=== PATIENT | female | born 1955 | race Caucasian/White ===

== ENCOUNTER → 2018-05-27 | Outpatient (CLI) | payer OTHER ==
--- NOTE | 2018-05-27 15:26 | CARD ---
MR#: [id number] Date of Study: 05/27/2018 Ordering Physician: ANITA CRISTOBAL, Referring Physician: ANITA CRISTOBAL, Tech: Dyan Kunz APPROVED REPORT EXAM: Two-dimensional and M-mode echocardiogram with Doppler and color Doppler. Other Information Quality : AverageHR: 86bpm Rhythm : NSR INDICATION Chest Pain RISK FACTORS Hyperlipidemia Smoking 2D DIMENSIONS RVDd2.8 (2.9-3.5cm)Left Atrium(2D)2.9 (1.6-4.0cm) IVSd1.0 (0.7-1.1cm)Aortic Root(2D)2.9 (2.0-3.7cm) LVDd4.2 (3.9-5.9cm)LVOT Diameter2.0 (1.8-2.4cm) PWd0.9 (0.7-1.1cm)LVDs2.3 (2.5-4.0cm) FS (%) 45.4 %SV61.3 ml Aortic Valve AoV Peak Kenny.105.9cm/sAoV VTI20.7cm AO Peak GR.4.5mmHgLVOT Peak Kenny.71.4cm/s LVOT VTI 15.54cmAO Mean GR.2mmHg DAT (VMAX)1.45ph2SUQ (VTI)2.45cm2 Mitral Valve MV E Cbvjngwl56.0cm/sMV DECEL [id number] MV A Qzhummof36.7cm/sMV [id number] E/A Ratio0.7MVA (PHT)3.21cm2 TDI E/Lateral E'6.4E/Medial E'6.8 Pulmonary Valve PV Peak Gkqzxcgf40.0cm/sPV Peak Grad.2mmHg Tricuspid Valve TR P. Llxidoud114hp/sRAP QDRDFOZH5teOw TR Peak Gr.80zxNlLPFM25nvYc Pulmonary Vein S1 Pihgazks21.8cm/sD2 Lpdntoad01.0cm/s PVa [id number] LEFT VENTRICLE The left ventricle is normal size. There is normal left ventricular wall thickness. The left ventricu lar systolic function is normal and the ejection fraction is within normal range. The Ejection Fracti on is 55-60%. There is normal LV segmental wall motion. Transmitral Doppler flow pattern is Grade I-a bnormal relaxation pattern. RIGHT VENTRICLE The right ventricle is normal size. There is normal right ventricular wall thickness. The right ventr icular systolic function is normal. ATRIA The left atrium size is normal. The right atrium size is normal. The interatrial septum is intact wit h no evidence for an atrial septal defect or patent foramen ovale as noted on 2-D or Doppler imaging. AORTIC VALVE The aortic valve is normal in structure and function. Doppler and Color Flow revealed no significant aortic regurgitation. There is no significant aortic valvular stenosis. MITRAL VALVE The mitral valve is normal in structure and function. There is no evidence of mitral valve prolapse. There is no mitral valve stenosis. Doppler and Color Flow revealed no mitral valve regurgitation note d. TRICUSPID VALVE The tricuspid valve is normal in structure and function. Doppler and Color Flow revealed trace tricus pid regurgitation. There is no tricuspid valve stenosis. PULMONIC VALVE The pulmonic valve is not well visualized. Doppler and Color Flow revealed no pulmonic valvular regur gitation. GREAT VESSELS The aortic root is normal in size. The IVC is normal in size and collapses >50% with inspiration. PERICARDIAL EFFUSION There is no evidence of significant pericardial effusion. Critical Notification Critical Value: No <Conclusion> The left ventricle is normal size. The left ventricular systolic function is normal and the ejection fraction is within normal range. The Ejection Fraction is 55-60%. There is no significant aortic valvular stenosis. Doppler and Color Flow revealed no significant aortic regurgitation. Doppler and Color Flow revealed no mitral valve regurgitation noted. Doppler and Color Flow revealed trace tricuspid regurgitation. Signed by : Brian Panda MD Electronically Approved : 05/27/2018 15:25:17
== END | disposition home or self-care (01) ==
LOC: ECHO 13:38
PROVIDERS: ATTEND Family Medicine
DX: R07.9 Chest pain, unspecified (principal); R03.0 Elevated blood-pressure reading, without diagnosis of hypertension; E78.5 Hyperlipidemia, unspecified; F17.200 Nicotine dependence, unspecified, uncomplicated
CPT/HCPCS: 93306